=== PATIENT | male | born 1985 | race Caucasian/White ===

== ENCOUNTER 2019-09-22 12:41 | Emergency (ER) | payer BC ==
[2019-09-22] MEDS ORDERED: SODIUM CHLORIDE 0.9% 500 ML 500 ML IV ONE (13:10)
[2019-09-22] MEDS ORDERED: FAMOTIDINE 20 MG/2 ML VIAL IV STA (13:10)
[2019-09-22 13:42] LABS: Basophils % (A) 0 %; Eosinophils # (A) 0.5 k/uL (0-0.7); Eosinophils % (A) 6 %; HCT 47.1 % (39.0-53.0); HGB 15.3 gm/dL (13.0-17.5); Lymphocytes # (A) 0.7 k/uL (1.0-4.8); Lymphocytes % (A) 9 %; MCH 29.6 pg (25.0-35.0); MCHC 32.4 g/dL (31.0-37.0); MCV 91.2 fL (80.0-100.0); Mean Platelet Volume 7.7; Monocytes # (A) 0.8 k/uL (0-1.0); Monocytes % (A) 10 %; Neutrophils # (A) 5.8 k/uL (1.3-7.7); Neutrophils % (A) 73 %; Platelet Count 448 k/uL (150-450); RBC 5.17 m/uL (4.30-5.90); RDW 12.8 % (11.5-15.5); WBC 7.9 k/uL (3.8-10.6)
[2019-09-22 14:05] LABS: ALT 32 U/L (4-49); AST 32 U/L (17-59); African American GFR (CKD) >90 (>60 ml/min/1.73 sqM); Albumin 4.3 g/dL (3.5-5.0); Alkaline Phosphatase 47 U/L (38-126); Anion Gap 8 mmol/L; Blood Urea Nitrogen 12 mg/dL (9-20); Calcium 9.6 mg/dL (8.4-10.2); Carbon Dioxide 25 mmol/L (22-30); Chloride 107 mmol/L (98-107); Glucose 96 mg/dL (74-99); Non-African American GFR(CKD) >90 (>60 ml/min/1.73 sqM); Potassium 4.6 mmol/L (3.5-5.1); Sodium 140 mmol/L (137-145); Total Protein 7.5 g/dL (6.3-8.2)
[2019-09-22 16:16] VITALS: BP 155/80; PULSE 98; RESP 20; TEMP 97.3
--- NOTE | 2019-09-22 16:26 | ED ---
Allergic Reaction HPI - General Chief complaint: Allergic Reaction Stated complaint: Allergic Reaction Time Seen by Provider: 09/22/19 12:55 Source: EMS Mode of arrival: EMS Limitations: no limitations - History of Present Illness Initial Comments: 34-year-old male with history of splenectomy presenting to emergency department today for chief complaint of sent by urgent care for allergic reaction to bactrim. Patient states that he was recently prescribed Bactrim for a sinus infection patient states he did not fevers. Facial pain he also had sore throat and pain on each side of his neck> patient states he took a total of 3 doses of his bactrim, 1st without reaction, second dose with itching then the 3rd dose today he developed a rash, felt itchy, and wheezing. Patient continues to deny recorded fever at home, at the urgent care and is afebrile on arrival. Patient give bendaryl at the urgent care prior to ems transfer then given prednisone in the ambulance on the way to the emergency department. Patient denies chest pain shortness of breath, tongue lip or eye swelling, denies any vesicular lesions. Patient states he has sore throat, and pain on each side of his neck that states was present prior to reaction. Patient denies trimus, muffled voice, difficulty swallowing. Patient denies vomiting, diarrhea. Patient upon arrival appears well in no acute distress. - Related Data Allergies Allergy/AdvReac Type Severity Reaction Status Date / Time Penicillins Allergy Anaphylaxis Verified 09/22/19 12:49 sulfamethoxazole Allergy Anaphylaxis Verified 09/22/19 12:49 [From Bactrim] trimethoprim [From Bactrim] Allergy Anaphylaxis Verified 09/22/19 12:49 Review of Systems ROS Statement: Those systems with pertinent positive or pertinent negative responses have been documented in the HPI. ROS Other: All systems not noted in ROS Statement are negative. Past Medical History Past Medical History: No Reported History History of Any Multi-Drug Resistant Organisms: None Reported Additional Past Surgical History / Comment(s): splenectomy Past Psychological History: No Psychological Hx Reported Smoking Status: Never smoker Past Alcohol Use History: None Reported Past Drug Use History: None Reported General Exam - General Exam Comments Initial Comments: General: The patient is awake and alert, in no distress, and does not appear acutely ill. Eye: +3 mm pupils are equal, round and reactive to light, extra-ocular movements are intact. No nystagmus. There is normal conjunctiva bilaterally. No signs of icterus. No photophobia Ears, nose, mouth and throat: There are moist mucous membranes and no oral lesions. Oropharynx was not erythematous there is no tonsillar enlargement exudates or lesions. Uvula midline. Tympanic membranes are not erythematous or is no effusions bulging or retraction. No tenderness to palpation of the mastoid. Mild anterior cervical lymphadenopathy b/l. Rhinorrhea, clear and bilateral nares. No tripoding, no drooling. Neck: The neck is supple, there is no tenderness or JVD. No nuchal rigidity Cardiovascular: There is a regular rate and rhythm. No murmur, rub or gallop is appreciated. Respiratory: Lungs are clear to auscultation, respirations are non-labored, breath sounds are equal. No wheezes, stridor, rales, or rhonchi. No retractions or abdominal breathing. Gastrointestinal: Soft, non-distended, non-tender abdomen without masses or organomegaly noted. There is no rebound or guarding present. Bowel sounds are unremarkable. Large midline scar over the abdomen. Musculoskeletal: Normal ROM, no tenderness. Strength 5/5. Sensation intact. Radial pulses equal bilaterally 2+. Neurological: A&O x 3. CN II-XII intact grossly, There are no obvious motor or sensory deficits. Coordination appears grossly intact. Speech appears normal, no muffling. Skin: Skin is warm and dry. Raised wheals on UE and chest, red face. No swelling tongue oropharynx or lips, no eye swelling. No vesciular lesions. No extremity edema Psychiatric: Cooperative Limitations: no limitations Course Vital Signs 09/22/19 09/22/19 09/22/19 12:45 12:49 13:48 Temperature 97.9 F Pulse Rate 112 H 100 Respiratory 20 20 20 Rate Blood Pressure 138/102 O2 Sat by Pulse 97 100 Oximetry 09/22/19 09/22/19 09/22/19 14:48 15:19 16:14 Temperature 97.3 F L Pulse Rate 95 95 98 Respiratory 20 18 20 Rate Blood Pressure 135/93 155/80 O2 Sat by Pulse 100 95 95 Oximetry Medical Decision Making - Medical Decision Making 34-year-old male presenting for possible ALLERGIC reaction to Bactrim. Patient had urticaria on arrival that appeared to be very mild. Patient had been given Benadryl and oral prednisone prior to arrival patient was given Pepcid IV fluids. Patient is afebrile well-appearing complaining of sore throat that he states was present prior to the onset of the ALLERGIC reaction. Strep testing negative patient has some mild bilateral anterior cervical lymphadenopathy. Patient had lung sounds are clear. Upon reevaluation after the Pepcid and IV fluids patient had no signs of ALLERGIC reaction. Patient rapid strep negative heterophile negative he has no leukocytosis and no signs of sepsis. Patient has been afebrile emergency Department denies any recorded fever at home. Patient initially did not disclose that he had asplenia however review patient's chart and discussed this finding with patient he again denies any fevers I discussed the importance of obtaining blood cultures and cxr with history of URI symptoms. Patient agreed to blood cultures but refused CXR despite discussing risk of fulminate sepsis/. Patient management was not completed secondary to not being able to r/o pneumonia-- patient states he just wants to leave despite risks I discussed this and case wtih attending including patient [facility], he recommended prescribing patient levoquin if he is leaving against medical advice prior to complete of care and final disposition. - Lab Data Result diagrams: 09/22/19 13:10 09/22/19 13:10 Lab Results 09/22/19 09/22/19 09/22/19 Range/Units 13:10 13:10 13:10 WBC 7.9 (3.8-10.6) k/uL RBC 5.17 (4.30-5.90) m/uL Hgb 15.3 (13.0-17.5) gm/dL Hct 47.1 (39.0-53.0) % MCV 91.2 (80.0-100.0) fL MCH 29.6 (25.0-35.0) pg MCHC 32.4 (31.0-37.0) g/dL RDW 12.8 (11.5-15.5) % Plt Count 448 (150-450) k/uL Neutrophils % 73 % Lymphocytes % 9 % Monocytes % 10 % Eosinophils % 6 % Basophils % 0 % Neutrophils # 5.8 (1.3-7.7) k/uL Lymphocytes # 0.7 L (1.0-4.8) k/uL Monocytes # 0.8 (0-1.0) k/uL Eosinophils # 0.5 (0-0.7) k/uL Basophils # 0.0 (0-0.2) k/uL Sodium 140 (137-145) mmol/L Potassium 4.6 (3.5-5.1) mmol/L Chloride 107 (98-107) mmol/L Carbon Dioxide 25 (22-30) mmol/L Anion Gap 8 mmol/L BUN 12 (9-20) mg/dL Creatinine 0.93 (0.66-1.25) mg/dL Est GFR (CKD-EPI)AfAm >90 (>60 ml/min/1.73 sqM) Est GFR (CKD-EPI)NonAf >90 (>60 ml/min/1.73 sqM) Glucose 96 (74-99) mg/dL Calcium 9.6 (8.4-10.2) mg/dL Total Bilirubin 1.0 (0.2-1.3) mg/dL AST 32 (17-59) U/L ALT 32 (4-49) U/L Alkaline Phosphatase 47 (38-126) U/L Total Protein 7.5 (6.3-8.2) g/dL Albumin 4.3 (3.5-5.0) g/dL Heterophile Antibody Negative (Negative) Group A Strep Rapid (Negative) 09/22/19 Range/Units 13:10 WBC (3.8-10.6) k/uL RBC (4.30-5.90) m/uL Hgb (13.0-17.5) gm/dL Hct (39.0-53.0) % MCV (80.0-100.0) fL MCH (25.0-35.0) pg MCHC (31.0-37.0) g/dL RDW (11.5-15.5) % Plt Count (150-450) k/uL Neutrophils % % Lymphocytes % % Monocytes % % Eosinophils % % Basophils % % Neutrophils # (1.3-7.7) k/uL Lymphocytes # (1.0-4.8) k/uL Monocytes # (0-1.0) k/uL Eosinophils # (0-0.7) k/uL Basophils # (0-0.2) k/uL Sodium (137-145) mmol/L Potassium (3.5-5.1) mmol/L Chloride (98-107) mmol/L Carbon Dioxide (22-30) mmol/L Anion Gap mmol/L BUN (9-20) mg/dL Creatinine (0.66-1.25) mg/dL Est GFR (CKD-EPI)AfAm (>60 ml/min/1.73 sqM) Est GFR (CKD-EPI)NonAf (>60 ml/min/1.73 sqM) Glucose (74-99) mg/dL Calcium (8.4-10.2) mg/dL Total Bilirubin (0.2-1.3) mg/dL AST (17-59) U/L ALT (4-49) U/L Alkaline Phosphatase (38-126) U/L Total Protein (6.3-8.2) g/dL Albumin (3.5-5.0) g/dL Heterophile Antibody (Negative) Group A Strep Rapid Negative (Negative) Disposition Clinical Impression: Left against medical advice, Allergic reaction Disposition: Left Against Medical Advice Condition: Undetermined Is patient prescribed a controlled substance at d/c from ED?: No Referrals: Joel Santana DO [Primary Care Provider] - 1-2 days Time of Disposition: 16:26
== END 2019-09-22 16:15 | disposition left against medical advice (07) ==
LOC: EC 12:41
DX: T36.8X5A Adverse effect of other systemic antibiotics, initial encounter (principal); J02.9 Acute pharyngitis, unspecified; J32.9 Chronic sinusitis, unspecified; M54.2 Cervicalgia; Z88.0 Allergy status to penicillin; Z88.2 Allergy status to sulfonamides; Z53.20 Procedure and treatment not carried out because of patient's decision for unspecified reasons
CPT/HCPCS: 36415; 80053; 85025; 86308; 87040; 87081; 87430; 96361; 96374; 99285